=== PATIENT | female | born 1950 | race Caucasian/White ===

== ENCOUNTER → 2019-02-27 | Outpatient (CLI) | payer MEDICARE ==
--- NOTE | 2019-02-27 11:36 | Diagnostic Imaging Report ---
Right knee at 1042 hours. INDICATION: Knee pain. FINDINGS: Three views were obtained. There are no prior studies available for comparison. There is no fracture, dislocation or acute bony abnormality evident. There is moderate narrowing of the medial compartment of the knee joint and at least moderate narrowing of the patellofemoral space. There is only mild narrowing of the lateral compartment of the knee joint. There does appear to be chondrocalcinosis of both menisci. There also seems to be a small joint effusion present. The soft tissues are otherwise unremarkable. IMPRESSION: 1. There is no evidence for an acute bony abnormality. 2. There is degenerative disease involving the knee joint with the patellofemoral space the most severely affected. Dictated by: Dictated on workstation # [id number]
== END ==
LOC: RAD FS 10:36
PROVIDERS: ATTEND Nurse Practitioner
DX: M17.11 Unilateral primary osteoarthritis, right knee (principal)
CPT/HCPCS: 73562

== ENCOUNTER → 2021-01-06 | Outpatient (CLI) | payer MEDICARE ==
--- NOTE | 2021-01-06 14:37 | Diagnostic Imaging Report ---
HISTORY: Low back pain with radiculopathy radiating to the left lower extremity. TECHNIQUE: Frontal, bilateral oblique, lateral, and cone-down lateral lumbosacral views of the lumbar spine. COMPARISON: None FINDINGS: There is trace anterolisthesis at L4-L5 and L5-S1. There are moderate degenerative changes throughout the lumbar spine. There are moderate degenerative changes at L2-L3, and L5-S1 with mild degenerative changes elsewhere in the lumbar spine. There are degenerative changes in the lower thoracic spine. Vertebral body heights are preserved. No acute fracture is seen. There is no spondylolysis. Bilateral sacroiliac joints are patent. IMPRESSION: 1. Degenerative changes in the lumbar spine with no acute fracture seen. Dictated by: Dictated on workstation # [id number]
== END ==
LOC: RAD FS 11:37
PROVIDERS: ATTEND Family Medicine
DX: M47.26 Other spondylosis with radiculopathy, lumbar region (principal)
CPT/HCPCS: 72110

== ENCOUNTER → 2022-10-08 | Outpatient (CLI) | payer MEDICARE, MEDICAID | LOC: RAD 13:33 | PROVIDERS: ATTEND Family Medicine | DX: R47.81 Slurred speech (principal); H02.401 Unspecified ptosis of right eyelid; M54.2 Cervicalgia ==